=== PATIENT | female | born 1970 | race Caucasian/White ===

== ENCOUNTER 2017-08-08 05:26 | Day surgery (SDC) | payer OTHER, SELFPAY ==
[2017-08-08] MEDS ORDERED: Dextrose 5%-Lactated Ringers 1,000 ML IV SCH (05:45)
[2017-08-08] MEDS ORDERED: Glycopyrrolate 0.2 MG/ML 2 ML SDV IVPUSH ONE (07:00)
[2017-08-08] MEDS ORDERED: fentaNYL 100 MCG/2 ML SDV ONE (07:10)
[2017-08-08] MEDS ORDERED: Midazolam 1 MG/ML 2 ML SDV ONE (07:10)
[2017-08-08] MEDS ORDERED: Propofol 200 MG/20 ML SDV ONE (07:10)
--- NOTE | 2017-08-12 17:10 | OR ---
DATE OF PROCEDURE: 08/08/2017 PREOPERATIVE DIAGNOSIS: Increased heartburn and intermittent aspiration of esophageal contents, status post laparoscopic adjustable gastric band. POSTOPERATIVE DIAGNOSIS: Esophageal dilation with retained bile and food particles in the esophagus above the laparoscopic adjustable gastric band. OPERATIVE PROCEDURE: Esophagogastroduodenoscopy with biopsies of antrum for CLOtest. ANESTHESIA: IV sedation. INDICATIONS FOR PROCEDURE: This is a 47-year-old status post a laparoscopic adjustable gastric band placement, was having progressive problems with heartburn and occasional reflux of esophageal contents. She has had some problems with cough suggestive of some nighttime aspiration. Plan is to proceed with an upper GI endoscopy with biopsies as indicated. Potential risks including bleeding and perforation were discussed, and the patient wishes to proceed. DETAILS OF PROCEDURE: The patient was taken to the operating room and placed in the left lateral decubitus position. IV sedation was administered, after which the upper GI endoscope was passed orally through the length of the esophagus into the stomach with retroflexion view of the fundus, thereafter through the pyloric channel into the junction of the 3rd and 4th portions of the duodenum. Findings included a markedly dilated esophagus. This contained a large amount of nonbilious fluid, as well as some food particles in it despite the patient having been n.p.o. for several hours. This was associated with some patchy redness within the distal esophagus consistent with some inflammation related to the retained food and fluid. The imprint of the band was in an appropriate location and was widely patent, i.e., there was no mechanical obstruction at this point. The remainder of the stomach was unremarkable. Retroflexion did not show any signs of erosion of the band. The visualized portion of the pyloric channel and duodenum were unremarkable. Biopsies were then obtained from the antrum to check the patient's H. pylori status and the biopsy site was seen. During the course of the procedure, the fluid within the esophagus had been evacuated. At that point, the scope withdrawn and the procedure was then concluded. The patient appeared to be a candidate for conversion to a gastric bypass with removal of the band. All of the fluid has been removed from the band at this point, and she still has the above findings, making this a somewhat high risk situation in the long-term should she leave the band in place with likelihood of esophageal and pulmonary complications in the future if the band was not removed. We will contact the patient's insurance carrier regarding conversion to a gastric bypass. Hal Taveras MD /[id number]
== END 2017-08-08 08:35 | disposition home or self-care (01) ==
LOC: JP.SDS 05:26
PROVIDERS: ATTEND Surgery
DX: K22.8 Other specified diseases of esophagus (principal); T18.120A Food in esophagus causing compression of trachea, initial encounter; F32.9 Major depressive disorder, single episode, unspecified; E66.9 Obesity, unspecified; K21.9 Gastro-esophageal reflux disease without esophagitis; Z98.84 Bariatric surgery status; Z91.011 Allergy to milk products; Z91.012 Allergy to eggs; Z91.09 Other allergy status, other than to drugs and biological substances
CPT/HCPCS: 43239; 87081; J2250; J2704; J3010; J7042; J3490

== ENCOUNTER 2017-10-11 13:30 | Inpatient (IN) | payer OTHER, SELFPAY ==
[2017-11-08] MEDS ORDERED: Scopolamine 1.5 MG Transdermal Patch TOP SCH (08:00)
[2017-11-08] MEDS ORDERED: Celecoxib 200 MG Cap PO ONE (08:00)
[2017-11-08] MEDS ORDERED: Acetaminophen 500 MG Tab PO ONE (08:00)
[2017-11-08] MEDS ORDERED: Gabapentin 300 MG Cap PO ONE (08:00)
[2017-11-08] MEDS ORDERED: Dextrose 5%-Lactated Ringers 1,000 ML IV SCH (08:30)
[2017-11-08] MEDS ORDERED: Meropenem 500 MG SDV ONE (08:56)
[2017-11-08] MEDS ORDERED: Bupivacaine 0.5%/EPINEPHrine 1:200,000 50 ML MDV ONE (08:56)
[2017-11-08] MEDS ORDERED: Lidocaine 2% 100 MG/5 ML Syringe IVPUSH ONE (09:30)
[2017-11-08] MEDS ORDERED: Lidocaine 0.4%/D5W 2 GM/500 ML BAG IV SCH (09:30)
[2017-11-08] MEDS ORDERED: Ketamine 500 MG/5 ML MDV IV ONE (09:30)
[2017-11-08] MEDS ORDERED: cefOXitin 2 GM Vial ONE (10:07)
[2017-11-08] MEDS ORDERED: fentaNYL 250 MCG/5 ML SDV ONE ×2 (10:11→11:41)
[2017-11-08] MEDS ORDERED: Midazolam 1 MG/ML 2 ML SDV ONE (10:11)
[2017-11-08] MEDS ORDERED: Succinylcholine 200 MG/10 ML MDV ONE (10:13)
[2017-11-08] MEDS ORDERED: Ondansetron 4 MG/2 ML SDV ONE (10:13)
[2017-11-08] MEDS ORDERED: Glycopyrrolate 0.2 MG/ML 5 ML MDV ONE (10:13)
[2017-11-08] MEDS ORDERED: Propofol 200 MG/20 ML SDV ONE (10:13)
[2017-11-08] MEDS ORDERED: Neostigmine Methylsulfate 1 MG/ML 5 ML Syringe ONE (10:13)
[2017-11-08] MEDS ORDERED: Dexamethasone 4 MG/ML SDV ONE (10:13)
[2017-11-08] MEDS: cefOXitin 2 GM in Sodium Chloride 0.9% 50 ML IV ONE ×2 (10:30→17:01)
[2017-11-08] MEDS: Ropivacaine 57 ML, Dexamethasone 8 MG, EPINEPHrine 0.4 MG, Sodium Chloride 0.9% 20.6 ML NERVRT ONE ×8 (10:30→17:11)
[2017-11-08] MEDS ORDERED: Rocuronium 50 MG/5 ML Vial ONE ×2 (13:00)
[2017-11-08] MEDS ORDERED: hydrOXYzine HCl 100 MG/2 ML SDV IM ONE (13:50)
[2017-11-08] MEDS ORDERED: fentaNYL 100 MCG/2 ML SDV IVPUSH ONE (13:51)
[2017-11-08] MEDS ORDERED: Ondansetron 4 MG/2 ML SDV IVPUSH ONE (14:19)
[2017-11-08] MEDS: hydrOXYzine HCl 100 MG/2 ML SDV IM PRN (15:46)
[2017-11-08] MEDS ORDERED: Metoclopramide 10 MG/2 ML SDV IVPUSH PRN (16:00)
[2017-11-08] MEDS ORDERED: diphenhydrAMINE 50 MG/ML SDV IVPUSH PRN (16:00)
[2017-11-08] MEDS ORDERED: Labetalol 20 MG/4 ML Syringe IVPUSH PRN (16:00)
[2017-11-08] MEDS ORDERED: Ondansetron 4 MG/2 ML SDV IVPUSH PRN (16:00)
[2017-11-08] MEDS: cefOXitin 2 GM in Sodium Chloride 0.9% 50 ML IV SCH ×2 (17:00→22:22)
[2017-11-08] MEDS: MVI, Adult with Vitamin K 10 ML, Thiamine 100 MG, Chromium/Copper/Mang/Selen/Zn 1 ML in... IV SCH ×4 (17:00)
[2017-11-08] MEDS: Pantoprazole 40 MG Vial IVPUSH SCH (17:14)
[2017-11-08] MEDS: Heparin Sodium 5,000 Units/ML Vial SUBCUT SCH (17:15)
[2017-11-08] MEDS: Acetaminophen Soln 650 MG/20.3 ML UD Cup PO SCH ×2 (17:25→22:23)
[2017-11-08] MEDS: Gabapentin 250 MG/5 ML Solution ML 470 ML Bottle PO SCH (20:37)
[2017-11-08] MEDS: Dextrose 5%-Lactated Ringers 1,000 ML IV SCH (22:22)
[2017-11-09] MEDS ORDERED: Iohexol 647 MG/ML 50 ML SDV PO SCH (00:15)
[2017-11-09] MEDS: rOPINIRole 1 MG Tab PO SCH ×2 (01:07→21:09)
[2017-11-09] MEDS: traZODone 50 MG Tab PO SCH ×2 (01:08→21:09)
[2017-11-09] MEDS: Acetaminophen Soln 650 MG/20.3 ML UD Cup PO SCH ×4 (05:17→23:28)
[2017-11-09] MEDS: cefOXitin 2 GM in Sodium Chloride 0.9% 50 ML IV SCH ×3 (05:17→15:52)
[2017-11-09] MEDS: Heparin Sodium 5,000 Units/ML Vial SUBCUT SCH ×2 (05:17→18:09)
[2017-11-09] MEDS: Dextrose 5%-Lactated Ringers 1,000 ML IV SCH ×3 (05:21→23:29)
[2017-11-09] MEDS: Gabapentin 250 MG/5 ML Solution ML 470 ML Bottle PO SCH ×3 (08:09→21:09)
[2017-11-09] MEDS: Celecoxib 200 MG Cap PO SCH (08:10)
[2017-11-09] MEDS: SCOPOLAMINE PATCH CHECK TOP SCH (09:37)
[2017-11-09] MEDS ORDERED: SUMAtriptan 6 MG/0.5 ML SDV SUBCUT PRN (10:25)
[2017-11-09] MEDS: Pantoprazole 40 MG Vial IVPUSH SCH (15:51)
[2017-11-09] MEDS: MVI, Adult with Vitamin K 10 ML, Thiamine 100 MG, Chromium/Copper/Mang/Selen/Zn 1 ML in... IV SCH ×4 (15:52)
[2017-11-10] MEDS: Dextrose 5%-Lactated Ringers 1,000 ML IV SCH (02:10)
[2017-11-10] MEDS: Acetaminophen Soln 650 MG/20.3 ML UD Cup PO SCH ×4 (05:40→21:54)
[2017-11-10] MEDS: Heparin Sodium 5,000 Units/ML Vial SUBCUT SCH ×2 (05:40→17:23)
[2017-11-10] MEDS: Celecoxib 200 MG Cap PO SCH (08:55)
[2017-11-10] MEDS ORDERED: Cyanocobalamin (Vitamin B12) 1,000 MCG/ML SDV IM ONE (09:00)
[2017-11-10] MEDS: SCOPOLAMINE PATCH CHECK TOP SCH (09:49)
[2017-11-10] MEDS: Gabapentin 250 MG/5 ML Solution ML 470 ML Bottle PO SCH ×3 (09:52→21:54)
[2017-11-10] MEDS ORDERED: Venlafaxine 75 MG Tab PO PRN (10:50)
[2017-11-10] MEDS: Pantoprazole 40 MG Delayed-Release Granules 1 Packet PO SCH (11:34)
[2017-11-10] MEDS: hydrOXYzine HCl 100 MG/2 ML SDV IM PRN (11:36)
[2017-11-10] MEDS: Citalopram 20 MG Tab PO SCH (11:39)
--- NOTE | 2017-11-10 17:36 | PN ---
DATE OF SERVICE: 11/10/2017 The patient has been afebrile with stable vital signs. The main problem appears to be lack of adequate oral intake with only around 300 mL in yesterday. We will keep 1 more day, working on increasing oral intake, also restart some of her pertinent oral medications. She will likely be ready for discharge home tomorrow. Hal Taveras MD /[id number]
[2017-11-10] MEDS ORDERED: rOPINIRole 1 MG Tab PO SCH (21:00)
[2017-11-10] MEDS: rOPINIRole 1 MG Tab PO SCH (21:54)
[2017-11-10] MEDS: traZODone 50 MG Tab PO SCH (21:54)
[2017-11-11] MEDS: Heparin Sodium 5,000 Units/ML Vial SUBCUT SCH (05:43)
[2017-11-11] MEDS: Acetaminophen Soln 650 MG/20.3 ML UD Cup PO SCH ×2 (05:43→10:16)
[2017-11-11] MEDS: Celecoxib 200 MG Cap PO SCH (08:16)
[2017-11-11] MEDS: Citalopram 20 MG Tab PO SCH (08:16)
[2017-11-11] MEDS: Gabapentin 250 MG/5 ML Solution ML 470 ML Bottle PO SCH (08:17)
--- NOTE | 2017-11-11 08:22 | PN ---
DATE OF SERVICE: 11/09/2017 The patient is postop day #1 from a band removal and conversion to Geri-en-Y gastric bypass. No major problems have been noted overnight. Her upper GI x-ray looked good. We will go up to a step-2 diet today, she is tolerating the present pain management adequately, and she was restarted on her pertinent oral medications yesterday. She may be ready for discharge home tomorrow. Hal Taveras MD /[id number]
--- NOTE | 2017-11-11 08:58 | CR ---
UGI wo KUB HISTORY: eval R -Y GBP FINDINGS: After administration of oral contrast, upright views were obtained. Post operative changes gastric bypass. Surgical drains in place. No evidence for leak. Contrast passes freely into proximal small bowel loops. Surgical clips right upper quadrant and right midabdomen. Metallic safety pin proj ected over the mid abdomen is assumed to lie outside the patient. Clinically correlate. IMPRESSION: No evidence for leak or obstruction.
[2017-11-11] MEDS: Pantoprazole 40 MG Delayed-Release Granules 1 Packet PO SCH (10:16)
--- NOTE | 2017-11-11 12:01 | DISCH ---
ADMISSION DIAGNOSES: Intolerance to laparoscopic gastric band, morbid obesity, reactive depression, iron deficiency anemia, sleep difficulties, and hypertrichosis. DISCHARGE DIAGNOSES: Removal of laparoscopic gastric band system, formation of Geri-en-Y gastric bypass surgery, and liver biopsy for intolerance to laparoscopic gastric band system and hepatomegaly. Date 11/08/2017. HISTORY: Ina Kaye is a 47-year-old female with intolerance to laparoscopic gastric band system and morbid obesity. After preoperative evaluation and discussion of possible risks and possible complications, she wished to proceed with surgical procedure. HOSPITAL COURSE: Ina had her surgery on 11/08/2017. She had no operative complications. On postop day #1, her upper GI was normal. She was advanced to step-2 gastric bypass diet without cereal. She had no complications. Her activity was good. She received adequate dietary instruction. Pain was well managed. She did have a bowel movement prior to discharge, and she was able to be discharged to home on 11/11/2017. PHYSICAL EXAMINATION: GENERAL: Ina Kaye is a 47-year-old female. She is alert and orientated. SKIN: Warm and dry. Color is good. VITAL SIGNS: Height is 5 feet 6 inches. Weight is 253 pounds. BMI is 40.8. TPR is 99.5, 69, 16, and blood pressure 111/62. HEENT: Negative. NECK: Supple. HEART: Regular rate and rhythm. LUNGS: Clear. ABDOMEN: Sutures intact, 4x4 over GEORGI drain site. Abdominal binder is on. EXTREMITIES: Without peripheral edema. DISPOSITION: Discharged to home. CONDITION: Stable and improving. FOLLOWUP APPOINTMENT: With Maryellen Daniels PA-C, on 11/20/2017 at 1000 hours. DISCHARGE MEDICATIONS: Home Medications; 1. Tylenol 650 mg oral q.6 hours, either liquid or chewable, scheduled for 2 weeks. 2. Celebrex 200 mg daily for 14 days. 3. Citalopram 40 mg p.o. daily. 4. Flonase 2 sprays in each nostril once daily. 5. Lasix 20 mg daily. 6. Omeprazole 20 mg twice daily. 7. Imitrex 25 mg oral p.r.n. headache. 8. Effexor 75 mg oral daily. 9. Ropinirole 4 mg oral daily. 10.Trazodone 50 mg oral at bedtime. Discontinue taking ibuprofen, all vitamins and supplements until first postop appointment. DISCHARGE DIET: Step-2 gastric bypass diet without cereal for 2 weeks. Drink 8 to 10 glasses of water a day. ACTIVITY: As tolerated. No lifting greater than 10 pounds for 2 weeks. Driving, do not drive for 1 week. Shower/bathing, may shower. DISCHARGE INSTRUCTIONS: Notify provider if any fever or increased pain. Keep site clean and dry. Wear abdominal binder for 2 weeks and then as tolerated. Special instruction; use incentive spirometer 10 times every hour while awake for 1 week. Keep a protein, fluid, and activity journal and bring to clinic appointments.
--- NOTE | 2017-11-14 15:08 | OR ---
DATE OF PROCEDURE: 11/08/2017 PREOPERATIVE DIAGNOSIS: Intolerance to laparoscopic gastric band. POSTOPERATIVE DIAGNOSES: 1. Intolerance to laparoscopic gastric band. 2. Marked hepatomegaly. OPERATIVE PROCEDURES: 1. Removal of laparoscopic adjustable gastric band system (61047). 2. Formation of Geri-en-Y gastric bypass with long limb gastroenterostomy (84428 ). 3. Slava-Cut needle liver biopsy (88854). ANESTHESIA: General. ASSISTANTS: 1. Maryellen Daniels PA-C. 2. FERNANDO Fischer. INDICATION FOR PROCEDURE: This is a 47-year-old female presenting with progressive intolerance to the laparoscopic adjustable gastric band system. After preoperative evaluation and discussion, she wished to proceed with removal of the band system and conversion to Geri-en-Y gastric bypass. Potential risks of the procedure including bleeding, infection, leaks from various GI tract closures, problems with bowel obstruction over time, as well as possibly cardiopulmonary, septic, or hemorrhagic complications leading to were all discussed, and the patient wishes to proceed. DETAILS OF PROCEDURE: The patient was taken to the operating room and placed in the supine position. After general endotracheal anesthesia was induced, she was converted to a lithotomy position and the abdomen was prepped and draped. At 15 cm inferior and 5 cm left of xiphoid process, a transverse incision was made and the peritoneal cavity entered under direct vision with an Optiview trocar and inflated to 15 mmHg pressure with CO2. Laparoscope was reinserted. No underlying trocar insertion site injuries were seen. Following this, 5 additional trocars were placed across the upper and mid abdomen and general exploration undertaken. The patient was noted to have some adhesions centered around the area where the band tubing came up through the left upper mid abdomen. These were taken down with Harmonic scalpel. This then allowed visualization of abdominal wall on each side, and transversus abdominis plane blocks were placed in subcostal location bilaterally with direct visualization of the needle in the correct plane and injection of the standard solution bilaterally. At this point, the port tubing was divided just inside the point where it came into the abdominal wall. The dissection then began with loupe and division of adhesions around the band. This was done primarily with electrocautery and this was eventually freed up such that the band was then divided and pulled full free from its point of encircling the upper stomach. This band was then disassembled and removed from the peritoneal cavity. At this point, the patient was noted to have a marked hepatomegaly and Slava-Cut needle liver biopsy obtained from left lobe of the liver. Minimal bleeding from the biopsy site was controlled with electrocautery. The lesser curvature of the stomach above the imprint of the band was then divided with Harmonic scalpel. This allowed dissection behind the stomach at a point somewhat above the band. This dissection continued up obliquely towards the angle of His, where eventually the entire stomach in that plane was dissected free posteriorly and then divided with a series of SARAH black loads. Upon completion of the pouch staple line, both staple lines were inspected and found to be intact. Attention was then taken to formation of the Geri limb. The transverse colon was retracted upward and ligament of Treitz identified. The small bowel was then traced out 200 cm distal to that point and was divided transversely with a SARAH stapler. Small bowel was then traced out an additional 200 cm, where the [id number] enteroenterostomy was accomplished with internal firing of the Endo-SARAH 60 mm stapler. The common opening was then closed transversely with same stapler, angles anastomosed, and mesenteric defect approximated with some 0 Ethibond stitc,h along with fibrin sealant. The divided end of the Geri limb was then from the mesentery for a few centimeters, which allowed an antecolic position of the Geri limb up to the level of the gastroesophageal junction without tension. The anvil of a 25 mm EEA stapler was then attached to a Mellette sump-type tube. The latter was brought down through the mouth and taken out through a small opening in the gastric pouch, allowing the anvil likewise to be pulled down onto within the gastric pouch. The divided end of the Geri limb was then opened and main body EEA stapler passed several centimeters into the lumen of the small bowel, brought up the anvil and united with it, thus creating the gastrojejunostomy. Upon removal of the stapler, double donuts of mucosa were noted within it. The small bowel was closed off with a vascular staple line. Gastrojejunostomy was reinforced with some 3-0 Vicryl seromuscular stitch, along with fibrin sealant. Leak test was accomplished with injection of 120 mL of air in the gastric pouch while submerged in a cefoxitin-containing saline solution. No leaks were identified. A single Angel-Ward drain was taken out through the left lateral trocar site and positioned adjacent to the gastrojejunostomy. With no further problems noted, trocars were removed, and the peritoneal cavity was deflated. Incisions were closed with some 4-0 Vicryl skin stitch and drain affixed with 4- 0 Vicryl stitch as well. The patient was taken to the recovery room in satisfactory condition. ADDENDUM: Following the completion of the intra-abdominal portion of the procedure, an incision was made over the port on the abdominal wall. This was carried down through the skin and subcutaneous tissue and the capsule around the port incised. The port and the remaining attached tubing were then removed and the incision was then closed with 3-0 and 4-0 Vicryl stitch deep and a 4-0 Vicryl skin stitch. Physician assistant professor of chemistry, Maryellen Daniels, played an essential role in assisting in this case, helping to position the patient, retract structures as needed, as well as suturing and cutting sutures when indicated. Her presence improved patient's safety and decreased operative time. Hal Taveras MD /[id number]
== END 2017-11-11 10:40 | disposition home or self-care (01) | DRG 327 ==
LOC: JP.SDS 11-08 07:48 → JP.SDSSCHI 11-08 07:48 → EDSTATUS 11-08 09:00 → JP.2SS 11-08 13:40
PROVIDERS: ADMIT Surgery; ATTEND Surgery
PROC: 0DP64CZ Removal of Extraluminal Device from Stomach, Percutaneous Endoscopic Approach (ICD-10-PCS; principal; 2017-11-08)
PROC: 0D164ZA Bypass Stomach to Jejunum, Percutaneous Endoscopic Approach (ICD-10-PCS; 2017-11-08)
PROC: 0FB24ZX Excision of Left Lobe Liver, Percutaneous Endoscopic Approach, Diagnostic (ICD-10-PCS; 2017-11-08)
PROC: 3E0T3BZ Introduction of Anesthetic Agent into Peripheral Nerves and Plexi, Percutaneous Approach (ICD-10-PCS; 2017-11-08)
DX: K95.09 Other complications of gastric band procedure (principal); Z68.41 Body mass index [BMI] 40.0-44.9, adult; E66.01 Morbid (severe) obesity due to excess calories; D50.9 Iron deficiency anemia, unspecified; F32.9 Major depressive disorder, single episode, unspecified; L68.9 Hypertrichosis, unspecified; R16.0 Hepatomegaly, not elsewhere classified; G43.909 Migraine, unspecified, not intractable, without status migrainosus; G47.9 Sleep disorder, unspecified; K21.9 Gastro-esophageal reflux disease without esophagitis
CPT/HCPCS: 36415; 74240; 74240-26; 80053; 83735; 84100; 85027; 88300; 88307; 88313; A9270-GY; C9113; J0171; J0330; J0694; J1100; J1644; J2001; J2185; J2250; J2405; J2704; J2710; J2795; J3010; J3030; J3410; J3411; J3420; J7030; J7042; J7050; Q9967

== ENCOUNTER 2017-12-23 05:52 | Day surgery (SDC) | payer OTHER, SELFPAY ==
[2017-12-23] MEDS ORDERED: Glycopyrrolate 0.2 MG/ML 2 ML SDV IVPUSH ONE (06:30)
[2017-12-23] MEDS ORDERED: Cyanocobalamin (Vitamin B12) 1,000 MCG/ML SDV IM ONE (06:30)
[2017-12-23] MEDS ORDERED: MVI, Adult with Vitamin K 10 ML, Thiamine 100 MG, Chromium/Copper/Mang/Selen/Zn 1 ML in... IV ONE ×4 (06:30)
[2017-12-23] MEDS ORDERED: Lactated Ringers 1,000 ML IV ONE (06:30)
[2017-12-23] MEDS ORDERED: fentaNYL 100 MCG/2 ML SDV ONE (07:06)
[2017-12-23] MEDS ORDERED: Midazolam 1 MG/ML 2 ML SDV ONE (07:06)
[2017-12-23] MEDS ORDERED: Propofol 200 MG/20 ML SDV ONE (07:06)
[2017-12-23] MEDS ORDERED: Pantoprazole 40 MG Vial IVPUSH ONE (08:00)
--- NOTE | 2017-12-31 11:29 | OR ---
DATE OF PROCEDURE: 12/23/2017 PREOPERATIVE DIAGNOSIS: Probable stricture gastrojejunostomy. POSTOPERATIVE DIAGNOSES: 1. Moderate strictured gastrojejunostomy. 2. Small ulcerations x2 at gastrojejunostomy. OPERATIVE PROCEDURE: Upper GI endoscopy with dilation gastrojejunostomy (65753). ANESTHESIA: IV sedation. INDICATION FOR PROCEDURE: This is a 47-year-old status post band conversion to Geri-en-Y gastric bypass on 11/08/2017. She presents with some recurrent symptoms of stricturing at her gastrojejunostomy. Plan is to proceed with upper GI endoscopy with dilation as indicated. Potential risks including bleeding and perforation were discussed, and the patient wishes to proceed. DESCRIPTION OF PROCEDURE: The patient was taken to the operating room and placed in a left lateral decubitus position. IV sedation was administered, after which the upper GI endoscope was passed orally through the length of the esophagus and into the gastric pouch. The patient was noted to have no retained food or fluid. She did have a moderate stricture present. There were 2 roughly 1 mm ulcerations at the gastrojejunostomy as well from that there was not much in the way of general inflammation. Bard gastrointestinal balloon catheter was then inflated across the anastomosis to 36-Vietnamese size and held in position for one minute, after which the balloon catheter was deflated and withdrawn. The scope then easily did pass through the anastomosis. No complications were evident and the scope was withdrawn. The procedure was then concluded. The patient will be given Protonix 40 mg IV in the recovery room and then Protonix 40 mg daily x days to help limit her acid production and hopefully facilitate healing of the gastrojejunostomy. Hal Taveras MD /[id number]
== END 2017-12-23 09:34 | disposition home or self-care (01) ==
LOC: JP.SDS 05:52
PROVIDERS: ATTEND Surgery
DX: K91.89 Other postprocedural complications and disorders of digestive system (principal); Z98.84 Bariatric surgery status; K28.9 Gastrojejunal ulcer, unspecified as acute or chronic, without hemorrhage or perforation; E66.9 Obesity, unspecified; F32.9 Major depressive disorder, single episode, unspecified; Z91.012 Allergy to eggs
CPT/HCPCS: 43245; C9113; J2250; J2704; J3010; J3411; J3420; J7120; J3490

== ENCOUNTER 2018-08-11 21:18 | Inpatient (IN) | payer OTHER ==
[2018-08-11] MEDS ORDERED: HYDROmorphone 0.5 MG/0.5 ML Syringe IVPUSH ONE (23:17)
[2018-08-11] MEDS ORDERED: Lactated Ringers 1,000 ML IV SCH (23:30)
--- NOTE | 2018-08-11 23:43 | EDM.PDOC ---
ED HPI GENERAL MEDICAL PROBLEM - General Chief Complaint: Abdominal Pain Stated Complaint: ILLNESS Time Seen by Provider: 08/11/18 23:25 Source of Information: Reports: Patient, Family History Limitations: Reports: No Limitations - History of Present Illness INITIAL COMMENTS - FREE TEXT/NARRATIVE: 48-year-old female who had a recent surgery for small bowel obstruction and internal hernia was doing well, return to work today but after supper tonight developed fairly sudden epigastric pain which is worsening over the past 6 hours. It radiates to her back, no nausea or vomiting. Still some flatulence but no bowel movement. It feels very similar to her previous bowel obstructions. No urinary symptoms. Onset: Sudden (Symptoms started fairly suddenly 5 hours ago) Location: Reports: Abdomen Severity: Moderate Associated Symptoms: Reports: Loss of Appetite, Malaise, Other (Decreased bowel movements). Denies: Fever/Chills, Shortness of Breath upper ABD Pain Score (Numeric/FACES): 6 - Related Data Allergies Allergy/AdvReac Type Severity Reaction Status Date / Time egg Allergy Itching Verified 08/11/18 22:44 milk Allergy Itching Verified 08/11/18 22:44 environmental Allergy Other Uncoded 08/11/18 22:44 Home Meds: Home Meds Citalopram Hydrobromide [Celexa] 20 mg PO DAILY 08/07/17 [History] Fluticasone Propionate [Flonase] 2 inh INH DAILY PRN 08/07/17 [History] Furosemide [Lasix] 20 mg PO DAILY PRN 08/07/17 [History] Omeprazole Magnesium [Prilosec Otc] 20 mg PO BID PRN 08/07/17 [History] SUMAtriptan Succinate [Imitrex] 25 mg PO DAILY PRN 08/07/17 [History] rOPINIRole HCl [Requip] 1 mg PO DAILY 08/07/17 [History] Acetaminophen [Tylenol] 650 mg PO Q6H cup 11/11/17 [Rx] Multivitamin [Multi-Day Vitamins] 1 tab PO BID 12/19/17 [History] Ondansetron [Zofran ODT] 4 mg PO Q4H 12/19/17 [History] Celecoxib [CeleBREX] 200 mg PO DAILY #21 cap 07/28/18 [Rx] HYDROmorphone [Dilaudid] 2 - 4 mg PO Q4H PRN #30 tab 07/28/18 [Rx] Past Medical History HEENT History: Reports: Allergic Rhinitis, Impaired Vision Respiratory History: Reports: Bronchitis, Recurrent Gastrointestinal History: Reports: Cholelithiasis, GERD, Hiatal Hernia Genitourinary History: Reports: None ENDOSCOPE TECHNICIAN History: Reports: Endometriosis, Polycystic Ovaries, Neurological History: Reports: Migraines Psychiatric History: Reports: Anxiety, Depression Endocrine/Metabolic History: Reports: Diabetes, Type II, Obesity/BMI 30+ Other Endocrine/Metabolic History: history of Hematologic History: Reports: Anemia - Infectious Disease History Infectious Disease History: Reports: Chicken Pox, Mononucleosis - Past Surgical History HEENT Surgical History: Reports: Myringotomy w Tube(s), Tonsillectomy, Other ( See Below) Other HEENT Surgeries/Procedures: mastoidectomy on right Respiratory Surgical History: Reports: None GI Surgical History: Reports: Bariatric Procedure, Cholecystectomy, EGD, Esophageal Dilatation, Hernia Repair/Other, Small Bowel Female Surgical History: Reports: Hysterectomy, Tubal Ligation Endocrine Surgical History: Reports: None Neurological Surgical History: Reports: None Social & Family History - Family History Family Medical History: Noncontributory - Tobacco Use Smoking Status *Q: Never Smoker - Caffeine Use Caffeine Use: Reports: None Other Caffeine Use: none - Recreational Drug Use Recreational Drug Use: No ED ROS GENERAL - Review of Systems Review Of Systems: See Below Constitutional: Reports: Malaise, Decreased Appetite. Denies: Fever, Chills Respiratory: Denies: Shortness of Breath, Cough Cardiovascular: Denies: Chest Pain GI/Abdominal: Reports: Abdominal Pain. Denies: Diarrhea, Hematemesis, Hematochezia, Nausea, Vomiting : Reports: No Symptoms Musculoskeletal: Reports: Back Pain Skin: Reports: No Symptoms Neurological: Reports: No Symptoms Psychiatric: Reports: No Symptoms ED EXAM, GI/ABD - Physical Exam Exam: See Below Exam Limited By: No Limitations General Appearance: Alert, Anxious, Moderate Distress Eyes: Bilateral: Normal Appearance (No jaundice) Respiratory/Chest: No Respiratory Distress, Lungs Clear Cardiovascular: Regular Rate, Rhythm GI/Abdominal Exam: Tender (Patient is tender to palpation directly over the epigastric area, no guarding or rebound.), Abnormal Bowel Sounds (Bowel sounds are hypoactive) Extremities: Normal Inspection Neurological: Alert, Oriented Psychiatric: Anxious Skin Exam: Warm, Dry Course - Vital Signs Last Recorded V/S: Last Vital Signs Temp 98.2 F 08/12/18 01:19 Pulse 64 08/12/18 01:19 Resp 18 08/12/18 01:19 BP 110/70 08/12/18 01:19 Pulse Ox 100 08/12/18 01:19 - Orders/Labs/Meds Orders: Active Orders 24 hr Category Date Time Status Abdomen Pelvis wo Cont [CT] Stat Exams 08/11/18 23:39 Taken Medication Orders Hydromorphone HCl (Dilaudid Brass Finisher 15 Mg In Ns 30 Ml) 0 mg IV ASDIRECTED PRN; Protocol PRN Reason: ALUM[employer] RELATIONS COORDINATOR PAIN CONTROL Last Admin: 08/12/18 01:37 Dose: 15 mg Dextrose/Lactated Ringer's (Dextrose 5%-Lactated Ringers) 1,000 mls @ 150 mls/ hr IV ASDIRECTED TL Naloxone HCl (Narcan) 0.1 mg IV ASDIRECTED PRN PRN Reason: decreased respiratory rate Ondansetron HCl (Zofran) 4 mg IVPUSH Q6H PRN PRN Reason: Nausea Labs: Laboratory Tests 08/11/18 08/11/18 08/11/18 Range/Units 23:39 23:39 23:39 WBC 9.0 (4.5-11.0) K/uL RBC 4.41 (3.30-5.50) M/uL Hgb 14.4 (12.0-15.0) g/dL Hct 41.2 (36.0-48.0) % MCV 93 (80-98) fL MCH 33 H (27-31) pg MCHC 35 (32-36) % Plt Count 365 (150-400) K/uL Neut % (Auto) 49 (36-66) % Lymph % (Auto) 33 (24-44) % [place] % (Auto) 8 H (2-6) % Eos % (Auto) 10 H (2-4) % Baso % (Auto) 1 (0-1) % Sodium 141 (140-148) mmol/L Potassium 4.4 (3.6-5.2) mmol/L Chloride 106 (100-108) mmol/L Carbon Dioxide 24 (21-32) mmol/L Anion Gap 15.4 H (5.0-14.0) mmol/L BUN 14 (7-18) mg/dL Creatinine 0.6 (0.6-1.0) mg/dL Est Cr Clr Drug Dosing 109.68 mL/min Estimated GFR (MDRD) > 60 (>60) Glucose 96 (74-106) mg/dL Lactic Acid 1.0 (0.4-2.0) mmol/L Calcium 8.9 (8.5-10.1) mg/dL Total Bilirubin 0.3 (0.2-1.0) mg/dL AST 25 (15-37) U/L ALT 20 (12-78) U/L Alkaline Phosphatase 71 (46-116) U/L Total Protein 7.3 (6.4-8.2) g/dL Albumin 3.4 (3.4-5.0) g/dL Globulin 3.9 H (2.3-3.5) g/dL Albumin/Globulin Ratio 0.9 L (1.2-2.2) Lipase 97 (73-393) U/L Meds: Medications Generic Name Dose Route Start Last Admin Trade Name Freq PRN Reason Stop Dose Admin Hydromorphone HCl 0 mg 08/12/18 01:25 08/12/18 01:37 Dilaudid Brass Finisher 15 Mg In Ns 30 Ml IV 15 mg ASDIRECTED PRN Administration ALUMNI RELATIONS COORDINATOR PAIN CONTROL Protocol Dextrose/Lactated Ringer's 1,000 mls @ 150 mls/hr 08/12/18 04:00 Dextrose 5%-Lactated Ringers IV ASDIRECTED TL Naloxone HCl 0.1 mg 08/12/18 01:25 Narcan IV ASDIRECTED PRN decreased respiratory rate Ondansetron HCl 4 mg 08/12/18 01:27 Zofran IVPUSH Q6H PRN Nausea Discontinued Medications Generic Name Dose Route Start Last Admin Trade Name Freq PRN Reason Stop Dose Admin Hydromorphone HCl 0.5 mg 08/11/18 23:17 08/11/18 23:39 Dilaudid IVPUSH 08/11/18 23:18 0.5 mg ONETIME ONE Administration Lactated Ringer's 1,000 mls @ 150 mls/hr 08/11/18 23:30 08/11/18 23:39 Ringers, Lactated IV 150 mls/hr ASDIRECTED TL Administration - Re-Assessments/Exams Free Text/Narrative Re-Assessment/Exam: An IV was started, patient was hydrated with lactated Ringer's and given 0.5 mg of IV Dilaudid. CBC, CMP and lactic acid were obtained, and an abdomen and pelvis without contrast was ordered. 08/12/18 00:31 IMPRESSION: Wall thickening of several jejunal segments, partially related to incomplete distention, however concerning for a nonspecific enteritis. Correlate clinically. Mildly dilated fluid and gas filled distal small bowel segments without a discrete transition point visualized, which could represent ileus, although partial or early obstruction is not excluded. A small right pleural effusion. 08/12/18 00:36 Findings discussed with her surgeon Dr. Josef Taveras. Admission was arranged for fluids, pain control and nausea control, with reevaluation in the morning. Departure - Departure Time of Disposition: 00:42 Disposition: Admitted As Inpatient 68 Condition: Fair Clinical Impression: Gastroenteritis Abdominal pain Qualifiers: Abdominal location: generalized Qualified Code(s): R10.84 - Generalized abdominal pain - Discharge Information - My Orders Last 24 Hours: My Active Orders 08/11/18 23:39 Abdomen Pelvis wo Cont [CT] Stat - Assessment/Plan Last 24 Hours: My Active Orders 08/11/18 23:39 Abdomen Pelvis wo Cont [CT] Stat
[2018-08-12] MEDS ORDERED: Naloxone 0.4 MG/ML SDV IV PRN (01:25)
[2018-08-12] MEDS ORDERED: HYDROmorphone/Normal Saline 15 MG/30 ML PCA IV PRN (01:25)
[2018-08-12] MEDS ORDERED: Ondansetron 4 MG/2 ML SDV IVPUSH PRN (01:27)
[2018-08-12] MEDS ORDERED: Dextrose 5%-Lactated Ringers 1,000 ML IV SCH ×2 (04:00→12:00)
[2018-08-12] MEDS ORDERED: MVI, Adult with Vitamin K 10 ML, Thiamine 100 MG, Magnesium Sulfate 2 GM, Folic Acid 1 ... IV ONE ×5 (10:00)
[2018-08-12] MEDS: Acetaminophen 500 MG Tab PO PRN ×2 (12:45→20:08)
--- NOTE | 2018-08-12 16:20 | PCM.HP ---
H&P History of Present Illness - General Date of Service: 08/12/18 Admit Problem/Dx: Admission Diagnosis/Problem Admission Diagnosis/Problem Abdominal pain Ina states that she went back to work yesterday and besides feeling tired she felt ok. after eating supper she developed severe mid epigastric abdominal pain that radiated to her back. Pain was similar to the pain she experienced with her partial small bowel obstruction a few days before [place]. Minimal nausea, no vomiting and bowel movements have been regular. Ina was admitted to from the ED last night. States she is feeling better this morning. - History of Present Illness Improves with: Reports: Medication Worsens with: Reports: None Context: Reports: Sick Contact Associated Symptoms: Reports: No Other Symptoms upper ABD Pain Score (Numeric/FACES): 2 - Related Data Allergies/Adverse Reactions: Allergies Allergy/AdvReac Type Severity Reaction Status Date / Time egg Allergy Itching Verified 08/11/18 22:44 milk Allergy Itching Verified 08/11/18 22:44 environmental Allergy Other Uncoded 08/11/18 22:44 Home Medications: Home Meds Citalopram Hydrobromide [Celexa] 20 mg PO DAILY 08/07/17 [History] Fluticasone Propionate [Flonase] 2 inh INH DAILY PRN 08/07/17 [History] Furosemide [Lasix] 20 mg PO DAILY PRN 08/07/17 [History] Omeprazole Magnesium [Prilosec Otc] 20 mg PO BID PRN 08/07/17 [History] SUMAtriptan Succinate [Imitrex] 25 mg PO DAILY PRN 08/07/17 [History] rOPINIRole HCl [Requip] 1 mg PO DAILY 08/07/17 [History] Acetaminophen [Tylenol] 650 mg PO Q6H cup 11/11/17 [Rx] Multivitamin [Multi-Day Vitamins] 1 tab PO BID 12/19/17 [History] Ondansetron [Zofran ODT] 4 mg PO Q4H 12/19/17 [History] Celecoxib [CeleBREX] 200 mg PO DAILY #21 cap 07/28/18 [Rx] HYDROmorphone [Dilaudid] 2 - 4 mg PO Q4H PRN #30 tab 07/28/18 [Rx] Past Medical History HEENT History: Reports: Allergic Rhinitis, Impaired Vision Respiratory History: Reports: Bronchitis, Recurrent Gastrointestinal History: Reports: Cholelithiasis, GERD, Hiatal Hernia Genitourinary History: Reports: None [employer] History: Reports: Endometriosis, Polycystic Ovaries, Neurological History: Reports: Migraines Psychiatric History: Reports: Anxiety, Depression Endocrine/Metabolic History: Reports: Diabetes, Type II, Obesity/BMI 30+ Other Endocrine/Metabolic History: history of Hematologic History: Reports: Anemia - Infectious Disease History Infectious Disease History: Reports: Chicken Pox, Mononucleosis - Past Surgical History HEENT Surgical History: Reports: Myringotomy w Tube(s), Tonsillectomy, Other ( See Below) Other HEENT Surgeries/Procedures: mastoidectomy on right Respiratory Surgical History: Reports: None GI Surgical History: Reports: Bariatric Procedure, Cholecystectomy, EGD, Esophageal Dilatation, Hernia Repair/Other, Small Bowel Female Surgical History: Reports: Hysterectomy, Tubal Ligation Endocrine Surgical History: Reports: None Neurological Surgical History: Reports: None Social & Family History - Family History Family Medical History: Noncontributory - Tobacco Use Smoking Status *Q: Never Smoker - Caffeine Use Caffeine Use: Reports: None Other Caffeine Use: none - Recreational Drug Use Recreational Drug Use: No H&P Review of Systems - Review of Systems: Review Of Systems: ROS reveals no pertinent complaints other than HPI. Exam - Exam Exam: See Below - Vital Signs Vital Signs: Last Vital Signs Temp 98.1 F 08/12/18 14:59 Pulse 66 08/12/18 14:59 Resp 16 08/12/18 14:59 BP 84/47 L 08/12/18 14:59 Pulse Ox 93 L 08/12/18 14:59 Weight: 192 lb 8.016 oz - Exam Quality Assessment: DVT Prophylaxis General: Alert, Oriented, Cooperative, Mild Distress HEENT: PERRLA Neck: Supple, Trachea Midline Lungs: Clear to Auscultation, Normal Respiratory Effort Cardiovascular: Regular Rate, Regular Rhythm GI/Abdominal Exam: Normal Bowel Sounds, No Distention, Tender (in the mid epigastric area ) (Female) Exam: Deferred Rectal (Female) Exam: Deferred Back Exam: Normal Inspection, Full Range of Motion Extremities: Normal Inspection, Normal Range of Motion Skin: Warm, Dry, Intact Neurological: Cranial Nerves Intact, Reflexes Equal Bilateral Neuro Extensive - Mental Status: Alert, Oriented x3, Normal Mood/Affect, Normal Cognition Neuro Extensive - Motor, Sensory, Reflexes: CN II-XII Intact, Normal Reflexes Psychiatric: Alert, Normal Affect, Normal Mood - Patient Data Lab Results Last 24 hrs: Laboratory Results - last 24 hr 08/11/18 08/11/18 08/11/18 Range/Units 23:39 23:39 23:39 WBC 9.0 (4.5-11.0) K/uL RBC 4.41 (3.30-5.50) M/uL Hgb 14.4 (12.0-15.0) g/dL Hct 41.2 (36.0-48.0) % MCV 93 (80-98) fL MCH 33 H (27-31) pg MCHC 35 (32-36) % Plt Count 365 (150-400) K/uL Neut % (Auto) 49 (36-66) % Lymph % (Auto) 33 (24-44) % [place] % (Auto) 8 H (2-6) % Eos % (Auto) 10 H (2-4) % Baso % (Auto) 1 (0-1) % Sodium 141 (140-148) mmol/L Potassium 4.4 (3.6-5.2) mmol/L Chloride 106 (100-108) mmol/L Carbon Dioxide 24 (21-32) mmol/L Anion Gap 15.4 H (5.0-14.0) mmol/L BUN 14 (7-18) mg/dL Creatinine 0.6 (0.6-1.0) mg/dL Est Cr Clr Drug Dosing 109.68 mL/min Estimated GFR (MDRD) > 60 (>60) Glucose 96 (74-106) mg/dL Lactic Acid 1.0 (0.4-2.0) mmol/L Calcium 8.9 (8.5-10.1) mg/dL Total Bilirubin 0.3 (0.2-1.0) mg/dL AST 25 (15-37) U/L ALT 20 (12-78) U/L Alkaline Phosphatase 71 (46-116) U/L Total Protein 7.3 (6.4-8.2) g/dL Albumin 3.4 (3.4-5.0) g/dL Globulin 3.9 H (2.3-3.5) g/dL Albumin/Globulin Ratio 0.9 L (1.2-2.2) Lipase 97 (73-393) U/L Result Diagrams: 08/11/18 23:39 08/11/18 23:39 - Problem List (1) Gastroenteritis SNOMED Code(s): 73020792 ICD Code: K52.9 - NONINFECTIVE GASTROENTERITIS AND COLITIS, UNSPECIFIED Status: Acute Current Visit: Yes (2) Abdominal pain SNOMED Code(s): 15193233 ICD Code: R10.9 - UNSPECIFIED ABDOMINAL PAIN Status: Acute Current Visit : Yes Qualifiers: Abdominal location: generalized Qualified Code(s): R10.84 - Generalized abdominal pain (3) Status post bariatric surgery SNOMED Code(s): 086313838, 153625507, 346779440 ICD Code: Z98.84 - BARIATRIC SURGERY STATUS Status: Chronic Current Visit : No (4) Iron deficiency anemia SNOMED Code(s): 93203830 ICD Code: D50.9 - IRON DEFICIENCY ANEMIA, UNSPECIFIED Status: Chronic Current Visit: No Qualifiers: Iron deficiency anemia type: inadequate dietary iron intake Qualified Code( s): D50.8 - Other iron deficiency anemias Problem List Initiated/Reviewed/Updated: Yes Orders Last 24hrs: Active Orders 24 hr Category Date Time Status Admission Status [Patient Status] [ADT] Routine ADT 08/12/18 00:39 Active Activity as Tolerated [RC] .Routine Care 08/12/18 01:27 Active Antiembolic Devices [RC] .Routine Care 08/12/18 05:39 Active IS (RT) [RT Incentive Spirometry] [RC] Q1HWA Care 08/12/18 05:39 Active Bariatric Diet [DIET] Diet 08/12/18 Breakfast Active Abdomen 2V AP Flat Upright [CR] Timed Exams 08/13/18 04:00 Ordered Abdomen Pelvis wo Cont [CT] Stat Exams 08/11/18 23:39 Taken Acetaminophen [Tylenol Extra Strength] Med 08/12/18 12:15 Active 1,000 mg PO Q6H PRN Dextrose 5%-Lactated Ringers 1,000 ml Med 08/12/18 12:00 Active IV ASDIRECTED HYDROmorphone/Normal Saline [Dilaudid DIRECTOR OF PURCHASING 15 MG in NS Med 08/12/18 01:25 Active 30 ML] 0 mg IV ASDIRECTED PRN Naloxone [Narcan] Med 08/12/18 01:25 Active 0.1 mg IV ASDIRECTED PRN Ondansetron [Zofran] Med 08/12/18 01:27 Active 4 mg IVPUSH Q6H PRN SCD [Sequential Compression Device] [OM.PC] Routine Oth 08/12/18 05:39 Ordered Code Status [Resuscitation Status] Routine Resus Stat 08/12/18 01:25 Ordered Medication Orders Acetaminophen (Tylenol Extra Strength) 1,000 mg PO Q6H PRN PRN Reason: Headache Last Admin: 08/12/18 12:45 Dose: 1,000 mg Hydromorphone HCl (Dilaudid Animal Nurse 15 Mg In Ns 30 Ml) 0 mg IV ASDIRECTED PRN; Protocol PRN Reason: DIRECTOR OF PURCHASING PAIN CONTROL Last Admin: 08/12/18 01:37 Dose: 15 mg Dextrose/Lactated Ringer's (Dextrose 5%-Lactated Ringers) 1,000 mls @ 100 mls/ hr IV ASDIRECTED TL Naloxone HCl (Narcan) 0.1 mg IV ASDIRECTED PRN PRN Reason: decreased respiratory rate Ondansetron HCl (Zofran) 4 mg IVPUSH Q6H PRN PRN Reason: Nausea Assessment/Plan Comment:: Assessment: Abdominal Pain secondary to post operative swelling at the jejunojejunostomy junction. Plan: Admit for 2 nights and 2 days. Rx Step 2 Gastric Bypass Diet with Cereal Decrease IV rate to 100 mls at noon Give 1 liter of LR with MVI Will evaluate prn or in am Plan discharge in am if she continues to improve. Maryellen Live
[2018-08-13] MEDS: Acetaminophen 500 MG Tab PO PRN (07:36)
--- NOTE | 2018-08-13 09:09 | CR ---
Abdomen. Findings: Large amount of fecal residual. No dilated loops of large or small bowel.
--- NOTE | 2018-08-13 12:45 | DISCH ---
ADMISSION DIAGNOSES: 1. Abdominal pain, SP exploratory laparotomy with lysis of extensive adhesions, reduction of small bowel volvulus and closure of internal hernia, small bowel resection, repair of incarcerated incisional hernia, repair of incarcerated umbilical hernia, excision of peritoneal nodule at base of small bowel mesentery and placement of Vicryl mesh to displace small bowel from pelvic and abdominal wall to limit recurrent adhesive formation. Date of procedure: 07/26/2018. Surgeon: Hal Taveras MD. 2. Geri-en-Y gastric bypass surgery with removal of gastric lap band. 3. Malabsorption, unspecified. 4. Vitamin B12 deficiency. 5. Vitamin D deficiency. 6. Endometriosis. 7. Polycystic ovary syndrome. 8. Anxiety and depression. 9. Diabetes, type 2. 10.Migraine headaches. 11.Anemia. HISTORY: Ina Kaye is a 48-year-old female, who had the above surgery on 07/26/2018. After eating her evening meal, she developed severe mid epigastric abdominal pain that radiated to her back, similar to the pain she experienced when she had her partial small bowel obstruction on 07/26/2018. She presented to the Emergency Department at [facility] and was admitted for the abdominal pain on 08/12/2018. She had used the [employer] during the night. Abdominal pain did get better. She was started on a step-2 gastric bypass diet. She had no further pain. Oral intake was 300. Urine output was 1300. Vital signs were stable, afebrile. She was up ambulating and was able to be discharged to home on 08/13/2018. REVIEW OF SYSTEMS: GENERAL: Denies any fever, chills, night sweats. States she is tired. HEENT: Negative for headache, dizziness. No upper respiratory infection signs and symptoms. NECK: Negative. HEART: No chest pain, shortness of breath, fast or irregular heart beat. LUNGS: No cough. ABDOMEN: As above. No further pain. Passing flatus. Last bowel movement was 08/12/2018. EXTREMITIES: No joint pain or swelling. SKIN: Without rash. NEUROLOGIC: No headaches, dizziness, loss of coordination. PSYCHIATRIC: Negative for any exasperation or depression or anxiety. Remainder of review of systems negative for any pertinent positives and negatives. OBJECTIVE: GENERAL: Ina Kaye is a 48-year-old female. VITAL SIGNS: Height is 5 feet 6.14 inches, weight is 192 pounds. TPR is 99, 61, 16, blood pressure 115/68. HEENT: Negative. NECK: Supple. HEART: Regular rate and rhythm. LUNGS: Clear. ABDOMEN: Soft, flat, nontender. EXTREMITIES: Without peripheral edema. NEUROLOGIC: Intact. PSYCHIATRIC: Mood and affect appropriate. DISPOSITION: Discharged to home. CONDITION: Stable and improving. FOLLOWUP: Followup appointment with Maryellen Daniels PA-C, which she already has scheduled in about 10 days. HOME MEDICATIONS: She is to continue her home medication of Tylenol 650 mg oral daily, finish the Celebrex 200 mg she has at home, citalopram 20 mg oral daily, Flonase 2 inhalation daily as needed p.r.n. allergies, Lasix 20 mg oral daily, multivitamin one tablet twice daily, omeprazole 20 mg twice daily, Zofran 4 mg ODT every 4 hours p.r.n. nausea, Imitrex 25 mg oral daily for headache, and ropinirole 1 mg oral daily. DIET: Step-2 gastric bypass diet with cereal until next appointment. Drink 8 to 10 glasses of water a day. ACTIVITY: No lifting over 10 pounds for 1 month. Shower/bathing; may shower. Driving; may drive today. DISCHARGE INSTRUCTIONS: Notify provider if any fever, increased pain, nausea, or vomiting. Keep incision site clean and dry. Continue to wear abdominal binder.
== END 2018-08-13 10:00 | disposition home or self-care (01) | DRG 392 ==
LOC: JP.ED 21:18 → JP.MS 08-12 00:43
PROVIDERS: ADMIT Surgery; ATTEND Surgery
DX: K52.9 Noninfective gastroenteritis and colitis, unspecified (principal); K91.2 Postsurgical malabsorption, not elsewhere classified; D50.9 Iron deficiency anemia, unspecified; G89.18 Other acute postprocedural pain; E53.8 Deficiency of other specified B group vitamins; E55.9 Vitamin D deficiency, unspecified; E28.2 Polycystic ovarian syndrome; F41.9 Anxiety disorder, unspecified; F32.9 Major depressive disorder, single episode, unspecified; E11.9 Type 2 diabetes mellitus without complications; G43.909 Migraine, unspecified, not intractable, without status migrainosus; H54.7 Unspecified visual loss; K21.9 Gastro-esophageal reflux disease without esophagitis; E66.9 Obesity, unspecified; Z90.710 Acquired absence of both cervix and uterus; Z91.012 Allergy to eggs; Z91.011 Allergy to milk products; Z98.84 Bariatric surgery status; Z91.048 Other nonmedicinal substance allergy status; Z79.899 Other long term (current) drug therapy; Z90.49 Acquired absence of other specified parts of digestive tract; Z68.31 Body mass index [BMI] 31.0-31.9, adult
CPT/HCPCS: 36415; 74019; 74019-26; 74176; 80053; 83605; 83690; 85025; A9270-GY; J1170; J3411; J3475; J3490; J7042; J7120

== ENCOUNTER 2022-01-02 08:18 | Day surgery (SDC) | payer OTHER ==
[~2022-01-02 08:18] MED LIST: Midazolam 1 MG/ML 2 ML SDV ONE; Propofol 200 MG/20 ML SDV ONE; fentaNYL 100 MCG/2 ML SDV ONE
[2022-01-02] MEDS: Lactated Ringers 1,000 ML IV SCH (09:08)
[2022-01-02] MEDS: Cyanocobalamin (Vitamin B12) 1,000 MCG/ML SDV IM ONE (09:10)
[2022-01-02] MEDS: Glycopyrrolate 0.2 MG/ML 2 ML SDV IVPUSH ONE (09:30)
[2022-01-02] MEDS: MVI, Adult with Vitamin K 10 ML, Thiamine 200 MG, Zinc/Copper/Manganese/Selenium 1 ML i... IV ONE ×4 (11:00)
== END 2022-01-02 12:23 | disposition home or self-care (01) ==
LOC: JP.SDS 08:18
PROVIDERS: ATTEND Surgery
DX: K22.70 Barrett's esophagus without dysplasia (principal); R68.81 Early satiety; Z98.84 Bariatric surgery status
CPT/HCPCS: 43239; 88305; J2250; J2704; J3010; J3411; J3420; J3490; J7120